=== PATIENT | female | born 1965 | race Caucasian/White ===

== ENCOUNTER 2019-08-27 15:16 | Emergency (ER) | payer BC ==
--- NOTE | 2019-08-27 16:15 | Emergency Department Record ---
History of Present Illness - General Chief Complaint: Numbness Stated Complaint: TINGLING AND NUMBNESS BOTH ARMS,BACK PAIN Time Seen by Provider: 08/27/19 15:58 Source: Patient Mode of Arrival: Ambulatory Limitations: No limitations - History of Present Illness Initial Comments: The patient is here due to bilateral hand and arm pain for 6 months that slowly is worsening. The pain is in the wrist and does radiate to the shoulders at times. She also has had numbness to the palmar thumb and 2nd and 3rd fingers along with 1/2 of the 4th fingers. The numbness does appear to be worse at night and she does need to shake her hands to relieve the numbness at times. She has a remote hx of carpal tunnel and does have splints at home. Additionally she has had L upper back pain for one day. That pain is worse with bending and twisting. She denies any CP, SOB, JESS, or sweating. The patient does have a recent diagnosis of TB and will be starting treatment soon. She denies any cough, night sweats or weight loss and states her lung lesions are on the R. Onset/Timin -: Month(s) Location: Left arm, Right arm Severity: Moderate - [place] Coma Scale Eye Response: (4) Open spontaneously Motor Response: (6) Obeys commands Verbal Response: (5) Oriented Jose Total: 15 - Related Data Home Medications: Home Medications Medication Instructions Recorded Confirmed Last Taken Atorvastatin Calcium [Lipitor] 20 mg PO DAILY 08/27/19 08/27/19 1 Day Ago ~08/26/19 Famotidine 20 mg PO DAILY 08/27/19 08/27/19 1 Day Ago ~08/26/19 Gabapentin [Neurontin] 300 mg PO QHS 08/27/19 08/27/19 1 Day Ago ~08/26/19 Hydroxychloroquine Sulfate 200 mg PO DAILY 08/27/19 08/27/19 1 Day Ago [Plaquenil] ~08/26/19 Levothyroxine Sodium [Synthroid] 50 mcg PO DAILY 08/27/19 08/27/19 1 Day Ago ~08/26/19 Meloxicam [Mobic] 7.5 mg PO BID 08/27/19 08/27/19 1 Day Ago ~08/26/19 Mirabegron [Myrbetriq] 50 mg PO DAILY 08/27/19 08/27/19 1 Day Ago ~08/26/19 Tizanidine HCl [Zanaflex] 4 mg PO QHS 08/27/19 08/27/19 1 Day Ago ~08/26/19 Venlafaxine HCl [Effexor] 75 mg PO DAILY 08/27/19 08/27/19 1 Day Ago ~08/26/19 Allergies/Adverse Reactions: Allergies Allergy/AdvReac Type Severity Reaction Status Date / Time Sulfa (Sulfonamide Allergy RASH Verified 08/27/19 15:38 Antibiotics) Travel Screening - Travel/Exposure Within Last 30 Days Have you traveled within the last 30 days?: No - Travel/Exposure Within Last Year Have you traveled outside the [place] in the last year?: No - Additonal Travel Details Have you been exposed to anyone with a communicable illness?: No - Travel Symptoms Symptom Screening: None Review of Systems Constitutional: Denies: Chills, Fever Eyes: Denies: Eye discharge ENT: Denies: Congestion Respiratory: Denies: Cough, Dyspnea Cardiovascular: Denies: Arrhythmia Endocrine: Denies: Fatigue Gastrointestinal: Denies: Nausea Genitourinary: Denies: Dysuria Musculoskeletal: Denies: Arthralgia Past Medical History - SOCIAL HISTORY Smoking Status: Never smoker Alcohol Use: Rare Drug Use: None - RESPIRATORY Hx Respiratory Disorders: Yes Hx Tuberculosis: Yes (being worked up) - CARDIOVASCULAR Hx Cardio Disorders: No - NEURO Hx Neuro Disorders: Yes Comment:: non specific connective disorder - GI Hx GI Disorders: Yes Hx Reflux: Yes - Hx Genitourinary Disorders: No - ENDOCRINE Hx Endocrine Disorders: No Hx Diabetes: No Hx Thyroid Disease: Yes - MUSCULOSKELETAL Hx Musculoskeletal Disorders: Yes Hx Arthritis: Yes Hx Fibromyalgia: Yes - PSYCH Hx Psych Problems: No - HEMATOLOGY/ONCOLOGY Hx Hematology/Oncology Disorders: No Family Medical History Any Significant Family History?: Yes Physical Exam - General General Appearance: Alert, Oriented x3, Cooperative, No acute distress - Head Head exam: Atraumatic, Normocephalic, Normal inspection - Eye Eye exam: Normal appearance, PERRL, EOMI - ENT Throat exam: Normal inspection. negative: Tonsillar erythema, Tonsillar exudate - Neck Neck exam: Normal inspection, Full ROM. negative: Tenderness - Respiratory Respiratory exam: Normal lung sounds bilaterally. negative: Respiratory distress - Cardiovascular Cardiovascular Exam: Regular rate, Normal rhythm, Normal heart sounds - GI/Abdominal GI/Abdominal exam: Soft, Normal bowel sounds. negative: Tenderness - Extremities Extremities exam: Normal inspection, Full ROM, Normal capillary refill. negative: Calf tenderness, Pedal edema, Tenderness - Back Back exam: Reports: Normal inspection, Paraspinal tenderness (The pain is 100% reproducible with palpation over the R upper lateral thoracic paraspinal area. ). Denies: Vertebral tenderness Image of Body Front/Back: 1 - Area of new pain and tenderness. Course Vital Signs 08/27/19 15:45 Temperature 97.7 F Pulse Rate [ 71 Pulse Ox Probe] Respiratory 18 Rate Blood Pressure 136/87 [Left Arm] Pulse Ox 97 - Reevaluation(s) Reevaluation #1: The patient is doing a lot better at this time. The back pain is gone with the Toradol and her carpal tunnel pain is slightly better. She was texting on the phone when I entered the room. I did explain that her workup is all neg. We will discharge the patient to home and have her see her PCP in 2 days as planned. 08/27/19 18:40 Medical Decision Making - Data Complexity MDM Data: Labs Ordered and/or Reviewed, X-Ray Ordered and/or Reviewed, EKG Ordered and/or Reviewed - Lab Data Result diagrams: 08/27/19 17:50 08/27/19 17:50 - EKG Data -: EKG Interpreted by Me EKG: No Acute Changes (NSR at 63, Poor R wave progression, Neg for ischemia.) - Radiology Data Radiology results: Report reviewed (CXR: Neg.) Disposition Disposition: Discharge Clinical Impression: Carpal tunnel syndrome Qualifiers: Laterality: bilateral Qualified Code(s): G56.03 - Carpal tunnel syndrome, bilateral upper limbs Disposition: Home, Self-Care Condition: (2) Stable Instructions: Paresthesia (ED) Additional Instructions: Please continue your regular medicines and use the [place] if needed. Please see your doctor this week as planned. Try to ice and elevate your wrists and wear your carpal tunnel splints as much as possible. Return to the ER for any worsening symptoms. Forms: Patient Portal Access Time of Disposition: 18:43 Quality - Quality Measures Quality Measures: N/A - Blood Pressure Screening View Details: Yes Does Patient Have Any of the Following: No Blood Pressure Classification: Pre-Hypertensive BP Reading Systolic Measurement: 126 Diastolic Measurement: 78 Screening for High Blood Pressure: < Pre-Hypertensive BP, F/U Documented > [G8950] Pre-Hypertensive Follow-up Interventions: Referral to alternative/primary care provider.
--- NOTE | 2019-08-27 17:16 | RADIOLOGY REPORT ---
EXAMINATION: Two View Chest Radiographs EXAM DATE: 08/27/2019 4:41 PM TECHNIQUE: Frontal and lateral views INDICATION: Left upper back pain COMPARISON: None ENCOUNTER: Not applicable FINDINGS: There is no airspace disease, pleural effusion or pneumothorax. Multiple subcentimeter calcified nodu les are present within the mid right lung. Heart size is normal. Bones and soft tissues are unremarka ble. IMPRESSION: No active chest disease. No focal rib abnormality noted. Dictated by: Dhruv Clements MD on 08/27/2019 5:13 PM. .
[2019-08-27] MEDS ORDERED: KETOROLAC 30 MG/ML VIAL IM ONE (17:25)
[2019-08-27 18:01] LABS: ABSOLUTE NEUTROPHIL COUNT 3.68; BASO % 0.5 % (0-6); EOS % 2.9 % (0-6); GRAN % 58.9 % (47-80); HEMATOCRIT 39.6 % (35.0-47.0); HEMOGLOBIN 12.6 gm/dl (11.6-16.0); LYMPH % 26.7 % (16-45); MEAN CORPUSCULAR HGB CONC 31.8 g/dl (32-36); MEAN PLATELET VOLUME 9.9 fl (7.4-10.4); PLATELET COUNT 223 K/uL (130-400); RED BLOOD COUNT 4.35 M/uL (3.80-5.40); RED CELL DISTRIBUTION WIDTH 12.4 % (11.5-14.5); WHITE BLOOD COUNT W/O DIFF 6.3 K/uL (4.2-12.2)
[2019-08-27 18:14] LABS: BLOOD UREA NITROGEN 16 mg/dL (6-20); CREATININE 0.7 mg/dL (0.5-0.9); EST GLOMERULAR FILTRATION RATE > 60 mL/min; TOTAL PROTEIN 7.4 g/dL (6.6-8.7)
[2019-08-27 18:16] LABS: GLUCOSE,RANDOM 95 mg/dL (74-109)
[2019-08-27 18:19] LABS: ALB/GLOB RATIO 1.5 (1.1-1.8); ALBUMIN 4.4 g/dL (4.0-5.0); ALKALINE PHOSPHATASE 100 U/L (35-104); ALT/SGPT 32 U/L (<33); AST/SGOT 24 U/L (10.0-35.0)
[2019-08-27] MEDS ORDERED: HYDROCODONE/APAP 5/325MG TABLET PO ONE (18:39)
== END 2019-08-27 18:57 | disposition home or self-care (01) ==
LOC: ER 15:16
DX: G56.03 Carpal tunnel syndrome, bilateral upper limbs (principal); M54.6 Pain in thoracic spine; A15.9 Respiratory tuberculosis unspecified
CPT/HCPCS: 99284 ×2; 96372; 85025; 80053; 84484; 71046; J1885